=== PATIENT | female | born 1955 | race African-American/Black ===

== ENCOUNTER → 2016-07-30 | Outpatient (CLI) | payer OTHER ==
--- NOTE | 2016-07-30 15:37 | MAMMOGRAPHY REPORT ---
BILATERAL DIGITAL SCREENING MAMMOGRAM TOMOSYNTHESIS WITH CAD: 07/30/2016 CLINICAL HISTORY: Routine screening. Patient has no complaints. TECHNIQUE: Breast tomosynthesis in addition to standard 2D mammography was performed. Current study was also evaluated with a Computer Aided Detection (CAD) system. COMPARISON: Comparison is made to exams dated: 07/25/2015 mammogram, 07/13/2013 mammogram, 07/19/2014 m ammogram, 07/10/2012 mammogram, 07/02/2011 mammogram, and 06/26/2010 mammogram - [facility] nter. BREAST COMPOSITION: There are scattered areas of fibroglandular density in both breasts. FINDINGS: There are scattered stable benign-appearing round microcalcifications in the breasts. No suspicious mass, architectural distortion or cluster of microcalcifications is seen. IMPRESSION: ACR BI-RADS CATEGORY 2: BENIGN There is no mammographic evidence of malignancy. A 1 year screening mammogram is recommended. The p atient will receive written notification of the results. Approximately 10% of breast cancers are not detected with mammography. A negative mammographic repor t should not delay biopsy if a clinically suggestive mass is present. Annette Merlos M.D. ay/:07/30/2016 15:15:14 Recoating Machine Operator: Haley MOSS(Nile)(M), [facility] letter sent: Normal 1/2 BI-RADS Code: ACR BI-RADS Category 2: Benign
== END | disposition home or self-care (01) ==
LOC: C.MAMM 14:37
PROVIDERS: ATTEND Obstetrics & Gynecology
DX: Z12.31 Encounter for screening mammogram for malignant neoplasm of breast (principal)

== ENCOUNTER → 2017-05-24 | Outpatient (CLI) | payer OTHER | END | disposition home or self-care (01) | LOC: C.PAPS 16:02 | PROVIDERS: ATTEND Obstetrics & Gynecology | DX: Z01.419 Encounter for gynecological examination (general) (routine) without abnormal findings (principal) ==

== ENCOUNTER 2021-09-03 00:09 | Observation (INO) ==
[2021-09-03] MEDS ORDERED: SODIUM CHLORIDE 0.9% 250 ML IV PRN (00:28)
[2021-09-03] MEDS ORDERED: PANTOPRAZOLE BOLUS/DRIP 1 EA IV STA (00:28)
[2021-09-03] MEDS ORDERED: PANTOprazole 80 MG in DEXTROSE 5% 100 ML IV ONE (00:28)
[2021-09-03] MEDS ORDERED: SODIUM CHLORIDE 0.9% 500 ML IV SCH (00:30)
--- NOTE | 2021-09-03 00:34 | Emergency Department Note ---
History of Present Illness General Chief complaint: Vomiting Stated complaint: VOMITING BLOOD Time Seen by Provider: 09/03/21 00:19 Source: patient History of Present Illness Provider complaint: Vomiting of blood Onset (ago): hour(s) Location: abdomen Pain Consistency: + intermittent Quality: + other (Dark blood) Relieved By: + none Associated symptoms: + nausea/vomiting; no chest pain, no cough, no fever/chills, no shortness of breath or no weakness This is a 66-year-old female with no significant past medical history presenting with vomiting blood just prior to arrival. The patient states that she started vomiting this afternoon after eating some toast. She states that initially there was no blood in her vomitus but the last time she vomited she noticed a significant amount of blood that was dark red. She states that there were no coffee grounds. She did not look at her last emesis prior to that 1 but stated that it smelled funny. She denies any black or bloody stools. She has no abdominal pain, chest pain or shortness of breath. She does not feel weak or dizzy. She is not on any blood thinners. She did take ibuprofen and Tylenol for 3 days on Saturday through Saturday due to a dental issue. She did not use excessive doses and only used 400 mg of ibuprofen at a time. She otherwise denies any NSAID use. She does not drink alcohol or have a history of alcohol abuse. He denies any recent fever or illness or cough or cold symptoms. She has had no hematuria or urinary symptoms. She does state that prior to menopause she did have heavy periods. She has had no vaginal bleeding recently. She denies palpitations. Home Medications Medication Instructions Recorded Confirmed Type acetaminophen 500 mg tablet 1,000 mg PO DIRECTED PRN 09/03/21 09/03/21 History (Tylenol Extra Strength) ibuprofen 200 mg tablet 400 mg PO DIRECTED PRN 09/03/21 09/03/21 History naproxen sodium 220 mg tablet 220 mg PO DIRECTED PRN 09/03/21 09/03/21 History (Aleve) Allergies Allergy/AdvReac Type Severity Reaction Status Date / Time No Known Allergies Allergy Unknown Verified 09/03/21 01:03 Past Med/Surg History Medical History No pertinent past medical history Social History Smoking Status: Never smoker Preferred Language: Divehi Feels Safe at Home: Yes Review of Systems See HPI for pertinent positives & negatives. and A total of 10 systems reviewed and were otherwise negative Physical Exam Vital Signs Vital Signs - 24 hr 09/03/21 00:12 09/03/21 00:30 09/03/21 01:09 Temperature 36.2 C L Temperature Source Temporal Artery Scan Pulse Rate 127 H 115 H 98 H Pulse Rate [Apical] Pulse Rate from SpO2 Sensor 116 H Respiratory Rate 18 15 27 H Respiratory Effort / Characteristics Respiratory Depth Respiratory Pattern Blood Pressure 97/59 L Blood Pressure [Left Arm] Blood Pressure Mean 71 Blood Pressure Mean [Left Arm] Blood Pressure Position Sitting Blood Pressure Position [Left Arm] Pulse Oximetry 98 98 Oxygen Delivery Method Room Air Sepsis Recent Fever Within 48 Hours No Sepsis New/Unexplained Change in Mental Status N/A Sepsis Action Taken by Nursing No Action Required 09/03/21 01:25 Temperature Temperature Source Pulse Rate Pulse Rate [Apical] 88 Pulse Rate from SpO2 Sensor Respiratory Rate 18 Respiratory Effort / Characteristics Non-Labored Spontaneous Respiratory Depth Normal Respiratory Pattern Regular Blood Pressure Blood Pressure [Left Arm] 123/82 Blood Pressure Mean Blood Pressure Mean [Left Arm] 95 Blood Pressure Position Blood Pressure Position [Left Arm] Lying Pulse Oximetry 98 Oxygen Delivery Method Room Air Sepsis Recent Fever Within 48 Hours Sepsis New/Unexplained Change in Mental Status Sepsis Action Taken by Nursing Constitutional: Vital signs reviewed. Hypotensive. Eyes: Pupils are equal round reactive to light. Conjunctiva are noninjected. ENT: Pharynx is clear without erythema or exudate. Mucous membranes are moist. Neck supple without meningeal signs. Respiratory: Clear to auscultation bilaterally. Breath sounds are equal bilaterally. Cardiovascular: Tachycardic. Regular rhythm. GI: Soft, nondistended and nontender. Bowel sounds are present. Musculoskeletal: No peripheral edema. No lower extremity tenderness. Integumentary: No cyanosis. or jaundice. Neurological: The patient is awake and alert. No focal deficits. Psychiatric: Normal affect. Not anxious appearing. Course Administered Medications Pantoprazole Sodium 40 mg/ (Dextrose) 100 mls @ 20 mls/hr IV Q5H ZELDA Stop: 10/03/21 00:44 Last Admin: 09/03/21 01:35 Dose: 8 mg/hr, 20 mls/hr Documented by: [id number] Discontinued Medications Pantoprazole Sodium 80 mg/ (Dextrose) 120 mls @ 400 mls/hr IV NOW ONE Stop: 09/03/21 00:45 Last Admin: 09/03/21 01:15 Dose: 400 mls/hr Documented by: [id number] Ioversol (Optiray 320 100ml) 94 ml IV ONCE ONE Stop: 09/03/21 01:08 Last Admin: 09/03/21 01:08 Dose: 94 ml Documented by: [id number] Critical Care Time Critical Care Time: Yes Total Critical Care Time: 35 I have personally spent approximately 35 minutes of critical care time in the direct management of this patient. This includes bedside care, interpretation of diagnostic studies, and testing, discussion with consultants, patient, and family members, and other required patient management activities. These minutes are in excess of all separately billable procedures. Medical Decision Making Differential Diagnosis Acute GI bleed, gastritis, Bella-He tears, esophageal rupture, varices, anemia Medical Records Attestation: I reviewed the patient's medical records. I did perform a limited focused review of portions of the patient's old chart on the electronic medical record. The patient has had no recent pertinent visits to this hospital. Home Medications Current Medication List: was personally reviewed by me Additional Comments: No meds Laboratory Data Attestation: I reviewed the patient's lab results. Result diagrams: 09/03/21 00:35 09/03/21 00:35 Lab Results 09/03/21 09/03/21 09/03/21 Range/Units 00:35 00:35 00:35 WBC 11.35 H (4.8-10.8) K/uL RBC 4.62 (4.2-5.4) M/uL Hgb 13.0 (12.0-16.0) g/dL POC Hgb (12.0-16.0) g/dl Hct 39.0 (37-47) % POC Hct (37-47) % MCV 84.4 (80-100) fL MCH 28.1 (25-34) pg MCHC 33.3 (32-36) g/dL RDW Std Deviation 41.0 (36.4-46.3) fL RDW Coeff of Chely 13.4 (11.5-14.5) % Plt Count 221 (130-400) K/uL MPV 9.5 (7.4-10.4) fL Immature Gran % (Auto) 0.2 % Neut % (Auto) 89.0 % Lymph % (Auto) 6.5 % Porter % (Auto) 4.1 % Eos % (Auto) 0.1 % Baso % (Auto) 0.1 % Neut # (Auto) 10.11 H (1.4-6.5) K/uL Lymph # (Auto) 0.74 L (1.2-3.4) K/uL Porter # (Auto) 0.46 (0.11-0.59) K/uL Eos # (Auto) 0.01 (0-0.5) K/uL Baso # (Auto) 0.01 (0-0.2) K/uL Immature Gran # (Auto) 0.02 (0.00-0.02) K/uL PT 11.1 (9.0-12.0) Seconds INR 1.0 (0.9-1.1) APTT 24.6 (21.0-31.0) Seconds PTT Ratio 0.9 POC Sodium (135-144) mmol/L Sodium 138 (136-145) mmol/L POC Potassium (3.3-5.0) mmol/L Potassium 3.3 L (3.5-5.1) mmol/L POC Chloride (101-112) mmol/L Chloride 107 (98-107) mmol/L Carbon Dioxide 20 L (21-32) mmol/L POC Total CO2 (24-31) mmol/L Anion Gap 11 (3-11) POC Anion Gap (16-25) mmol/L POC BUN (7-18) mg/dl BUN 21 (6-23) mg/dl Creatinine 0.61 (0.6-1.2) mg/dl POC Creatinine (0.6-1.3) mg/dl Est Cr Clr Drug Dosing 96.4 ml/min Est GFR ( Amer) 108.0 ml/min Est GFR (Non-Af Amer) 93.1 ml/min BUN/Creatinine Ratio 34.4 H (10-20) Glucose 120 H (70-99(Fasting)) mg/dl POC Glucose (other) (70-99) mg/dl Calcium 8.9 (8.5-10.1) mg/dl POC Ioniz Calcium Conchis (1.12-1.32) mmol/l Total Bilirubin 0.6 (0.2-1.0) mg/dl AST 24 (13-39) U/L ALT 17 (7-52) U/L Alkaline Phosphatase 47 (34-104) U/L Total Protein 7.0 (6.0-8.3) gm/dl Albumin 4.1 (3.4-5.0) gm/dl Globulin 2.9 (2.5-4.0) gm/dl Albumin/Globulin Ratio 1.4 (0.9-2) Crossmatch 09/03/21 09/03/21 Range/Units 00:37 00:52 WBC (4.8-10.8) K/uL RBC (4.2-5.4) M/uL Hgb (12.0-16.0) g/dL POC Hgb 12.9 (12.0-16.0) g/dl Hct (37-47) % POC Hct 38 (37-47) % MCV (80-100) fL MCH (25-34) pg MCHC (32-36) g/dL RDW Std Deviation (36.4-46.3) fL RDW Coeff of Chely (11.5-14.5) % Plt Count (130-400) K/uL MPV (7.4-10.4) fL Immature Gran % (Auto) % Neut % (Auto) % Lymph % (Auto) % Porter % (Auto) % Eos % (Auto) % Baso % (Auto) % Neut # (Auto) (1.4-6.5) K/uL Lymph # (Auto) (1.2-3.4) K/uL Porter # (Auto) (0.11-0.59) K/uL Eos # (Auto) (0-0.5) K/uL Baso # (Auto) (0-0.2) K/uL Immature Gran # (Auto) (0.00-0.02) K/uL PT (9.0-12.0) Seconds INR (0.9-1.1) APTT (21.0-31.0) Seconds PTT Ratio POC Sodium 141 (135-144) mmol/L Sodium (136-145) mmol/L POC Potassium 3.3 (3.3-5.0) mmol/L Potassium (3.5-5.1) mmol/L POC Chloride 107 (101-112) mmol/L Chloride (98-107) mmol/L Carbon Dioxide (21-32) mmol/L POC Total CO2 20 L (24-31) mmol/L Anion Gap (3-11) POC Anion Gap 18.0 (16-25) mmol/L POC BUN 22 H (7-18) mg/dl BUN (6-23) mg/dl Creatinine (0.6-1.2) mg/dl POC Creatinine 0.6 (0.6-1.3) mg/dl Est Cr Clr Drug Dosing ml/min Est GFR ( Amer) ml/min Est GFR (Non-Af Amer) ml/min BUN/Creatinine Ratio (10-20) Glucose (70-99(Fasting)) mg/dl POC Glucose (other) 128 H (70-99) mg/dl Calcium (8.5-10.1) mg/dl POC Ioniz Calcium Conchis 1.13 (1.12-1.32) mmol/l Total Bilirubin (0.2-1.0) mg/dl AST (13-39) U/L ALT (7-52) U/L Alkaline Phosphatase (34-104) U/L Total Protein (6.0-8.3) gm/dl Albumin (3.4-5.0) gm/dl Globulin (2.5-4.0) gm/dl Albumin/Globulin Ratio (0.9-2) Crossmatch See Detail Imaging Data Radiologist's Impression: [facility] Patient: LILIYA ARANDA (Female) : 51 Status: ER Date: 09/03/21 01:11 Room #: History: two episodes of bright red vomiting tonight no appendix, denies abdominal pain Slices: [id number] Priors: Tech: Karuna Durham @ [phone] Exams: CT ABDOMEN & PELVIS With Contrast Contrast: IV Amt: 94ml of optiray 320 Accession Numbers: [id number] Referring Physician: REFERRED SELF Preliminary Findings Only See Final Report For Complete Findings CT ABDOMEN & PELVIS With Contrast: Small hiatus hernia. No evidence of bowel obstruction or bowel wall thickening. There is diverticulosis without evidence of diverticulitis. The rectum is distended with air and stool up to a diameter 7.4 cm. No abnormal fluid or regional inflammatory reaction. Asymmetric atrophy of the right rectus abdominis muscle. There is a focal 6.4 x 6.4 x 3.0 cm fluid collection within the right rectus sheath which may represent a chronic seroma. Radiologist: Ramo Goins MD Study ready at 01:15 and initial results transmitted at 01:31 ECG Data Attestation: I personally reviewed and interpreted this ECG as follows: Indication: + tachycardia Rate (beats per minute): 107 Rhythm: + sinus tachycardia ECG [place]: + Left axis deviation ECG ST segments: + Nonspecific ST abnormalities ECG Findings: no PVCs Comparison ECG Date: no prior available MDM Narrative I did evaluate the patient as noted above. The patient is presenting with 5 episodes of vomiting today without any other symptoms. She states that the last episode of emesis contained a large amount of blood which was dark red. She did bring in the basin in which she vomited and I did see it myself. There was a large amount of dark red blood. She is initially hypotensive and tachycardic on examination. IV access was established. I did treat her with a bolus of normal saline IV. I did order a type and cross. She was also started on a Protonix drip with an initial bolus IV. did place an order for continuous cardiac monitoring. The monitor showed sinus tachycardia at a rate of 112 bpm. I did order and personally review the patient's 12-lead EKG as described above. Sinus tachycardia without acute ischemia. I did order and review the patient's blood work as noted in the electronic medical record. CBC shows white count 11.3. Hemoglobin is 13. Platelet count is 221. Coags are unremarkable. Electrolytes demonstrate a potassium of 3.3 and a CO2 of 20 but are otherwise unremarkable. Glucose is 120. LFTs are normal. I did reassess the patient. She is feeling better. She has no longer tachycardic and her heart rate is 86. Her blood pressure came up to 123/82. I did order a CT of the abdomen and pelvis. I did review the images myself as well as the radiology report as described above. She has no evidence of acute process. She has diverticulosis without dive rticulitis. She has asymmetric atrophy of the right rectus abdominal muscle with a 6.4 x 3 cm fluid collection within the right rectus sheath which may represent a chronic seroma. I did discuss the test results with the patient. I did recommend hospitalization for further care and evaluation and repeat H&H. I did discuss case with the hospitalist and returned case inspector. Impression & Plan Acute upper gastrointestinal bleeding, Hypokalemia Discharge Plan Visit Data Chief Complaint: Vomiting Stated Complaint: VOMITING BLOOD ED Provider: Khris Roy Discharge Problem: Acute upper gastrointestinal bleeding, Hypokalemia Patient Disposition: Being Evaluated by Hospitalist Forms Stand Alone Forms: My [facility] Prescriptions Prescriptions: No Action acetaminophen [Tylenol Extra Strength] 500 mg Tablet 1,000 mg PO DIRECTED PRN (Reason: Pain) RF: 0 naproxen sodium [Aleve] 220 mg Tablet 220 mg PO DIRECTED PRN (Reason: Pain) RF: 0 ibuprofen 200 mg Tablet 400 mg PO DIRECTED PRN (Reason: Pain) RF: 0 Referrals Referrals: Yuriy Torres MD [Primary Care Provider] -
[2021-09-03 00:54] LABS: Basophils # (auto) 0.01 K/uL (0-0.2); Basophils % (auto) 0.1 %; Eosinophils # (auto) 0.01 K/uL (0-0.5); Eosinophils % (auto) 0.1 %; Immature Granulocytes # (auto) 0.02 K/uL (0.00-0.02); Immature Granulocytes % (auto) 0.2 %; Lymphocytes # (auto) 0.74 K/uL (1.2-3.4); Lymphocytes % (auto) 6.5 %; Mean Corpuscular Hemoglobin 28.1 pg (25-34); Mean Corpuscular Hgb Conc 33.3 g/dL (32-36); Mean Corpuscular Volume 84.4 fL (80-100); Mean Platelet Volume 9.5 fL (7.4-10.4); Monocytes # (auto) 0.46 K/uL (0.11-0.59); Monocytes % (auto) 4.1 %; Neutrophils # (auto) 10.11 K/uL (1.4-6.5); Platelet Count 221 K/uL (130-400); RDW Coefficient of Variation 13.4 % (11.5-14.5); Red Blood Count 4.62 M/uL (4.2-5.4); White Blood Count 11.35 K/uL (4.8-10.8)
[2021-09-03 01:05] LABS: iSTAT Creatinine 0.6 mg/dl (0.6-1.3); iSTAT Hemoglobin 12.9 g/dl (12.0-16.0); iSTAT Ionized Calcium 1.13 mmol/l (1.12-1.32); iSTAT Potassium 3.3 mmol/L (3.3-5.0)
[2021-09-03 01:07] LABS: Partial Thromboplastin Ratio 0.9; Partial Thromboplastin Time 24.6 Seconds (21.0-31.0); Prothrombin Time 11.1 Seconds (9.0-12.0)
[2021-09-03] MEDS ORDERED: OPTIRAY 320 100ml IV ONE (01:07)
[2021-09-03 01:12] LABS: Albumin Globulin Ratio 1.4 (0.9-2); Albumin Level 4.1 gm/dl (3.4-5.0); BUN Creatinine Ratio 34.4 (10-20); Bilirubin,Total 0.6 mg/dl (0.2-1.0); Calcium 8.9 mg/dl (8.5-10.1); Creatinine Clr Calc Pharmacy 96.4 ml/min; Est GFR (Non-African American) 93.1 ml/min; Globulin 2.9 gm/dl (2.5-4.0); Potassium 3.3 mmol/L (3.5-5.1)
[2021-09-03] MEDS: PANTOprazole 40 MG in DEXTROSE 5% 100 ML IV SCH ×5 (01:35→21:26)
--- NOTE | 2021-09-03 01:53 | History & Physical Report ---
Date of Service September 03, 2021 Assessment & Plan (1) Acute upper gastrointestinal bleeding: Plan: Likely secondary to NSAID gastritis Possible hemodynamic instability given initial low blood pressure at the ER Hypokalemia secondary to emesis Hyperglycemia rule out DM OBS Medical telemetry IV PPI Follow H&H, transfuse PRBC if hemoglobin less than 7 and or for symptomatic anemia GI consult if with recurrent GI bleed/progressive hemoglobin drop Replace potassium Check hemoglobin A1c DVT prophylaxis. SCDs Re: GI bleed Full code Patient requesting updates from providers. Mr. Papi Moses, contact #[phone]. Text document was generated using Windation recognition software. It may contain grammatical or spelling errors. Kindly contact undersigned for clarification of any documentation item in question. History of Present Illness Chief Complaint: GI bleed Primary Care Provider: Yuriy Torres MD History obtained from patient, family, and records. Medical history significant for colonic diverticulosis and polyps, hyperlipidemia as per records. Last confinement 2003 under Gynecology service for heavy vaginal bleeding status post TERRANCE-BSO. Last week, patient had a dental procedure where she was instructed to take NSAIDs [id number] for 3 days to get the head of pain. Yesterday afternoon, patient noted recurrent emesis episodes. Patient later noted blood clots from vomitus. Patient denies chest pain, S OB, abdominal pain. No melena, no unusual weight loss. No prior episodes. Initial SBP upon arrival at the ER 90s. IV PPI initiated at the ER. Medical History as above 2017 colonoscopy showed colonic polyp and diverticulosis Surgical History : TERRANCE/BSO, BTL, cholecystectomy, appendectomy, tonsillectomy Family History : Breast cancer, ovarian cancer, lung cancer, DM, COPD Personal/Social history : Non-smoker, no EtOH intake, hairstylist/businesswoman Allergies Allergy/AdvReac Type Severity Reaction Status Date / Time No Known Allergies Allergy Unknown Verified 09/03/21 01:03 Home Medications Medication Instructions Recorded Confirmed Type acetaminophen 500 mg tablet 1,000 mg PO DIRECTED PRN 09/03/21 09/03/21 History (Tylenol Extra Strength) ibuprofen 200 mg tablet 400 mg PO DIRECTED PRN 09/03/21 09/03/21 History naproxen sodium 220 mg tablet 220 mg PO DIRECTED PRN 09/03/21 09/03/21 History (Aleve) Past Med/Surg History Medical History No pertinent past medical history Social History Smoking Status: Never smoker Second Hand Exposure: No; Do You Dip or Chew Tobacco: No; Tobacco Cessation Education Requested by Patient: No Hx Alcohol Use: No Hx Substance Use: No Preferred Language: Grenadian Communication Ability: Effective Image Archivist Required: No Beliefs That Will Affect Care: None Current Living Situation: Spouse Other Information That Helps Us Care for You: No Feels Safe at Home: Yes Safety Concerns: Feels Safe At This Time Assistive Devices: Contacts and Glasses Review of Systems Review of Systems: As per HPI, all 10 systems reviewed, all other ROS negative Physical Exam Physical Exam: GENERAL: Comfortable, pleasant, no respiratory distress SKIN: Normal color, warm HEENT: [place] palpebral conjunctivae, no ptosis, dry buccal mucosa NECK : Supple, no tenderness CHEST : CTA, no tenderness HEART : RRR, no obvious murmurs ABDOMEN: Some distention, nontender EXTREMITIES : No LE swelling/tenderness, no other conspicuous deformities noted NEUROLOGIC : Coherent, no facial asymmetry, no other gross focality Results & Data Results & Data ([facility]) Vital Signs (Past 12 Hours) Vital Signs Temp Pulse Pulse Resp BP BP Pulse Ox 09/03/21 01:25 88 18 123/82 98 09/03/21 01:09 98 H 27 H 09/03/21 00:30 115 H 15 98 09/03/21 00:12 36.2 C L 127 H 18 97/[address] abdomen pelvis initial read: Small hiatus hernia. No evidence of bowel obstruction or bowel wall thickening. There is diverticulosiswithout evidence of diverticulitis. The rectumis distended with air and stool up to a diameter 7.4 cm. No abnormal fluid or regional inflammatoryreaction. Asymmetric atrophyof the right rectus abdominis muscle. There is a focal 6.4 x 6.4 x 3.0 cmfluid collection within the right r ectus sheath which mayrepresent a chronic seroma. EKG as per my interpretation: Rate 105, sinus tachycardia, LAD, LAFB, T wave abnormalities inferior and anterolateral leads
[2021-09-03] MEDS ORDERED: POTASSIUM CHLORIDE PWD 20 MEQ PACK PO STA (03:23)
[2021-09-03] MEDS ORDERED: LACTATED RINGER'S 1,000 ML IV ONE (03:30)
[2021-09-03] MEDS ORDERED: PROMETHAZINE HCL 12.5 MG in SODIUM CHLORIDE 0.9% 50 ML IV PRN (03:30)
[2021-09-03] MEDS ORDERED: MAGNESIUM SULFATE / D5W 1 GM/100 ML BAG IV STA (04:10)
[2021-09-03] MEDS ORDERED: traMADol HCL 50 MG TABLET PO PRN (04:40)
[2021-09-03] MEDS ORDERED: MoRPHine SULFATE 4 MG/ML 1 ML CARP\\VIAL IV PRN ×2 (04:40→16:44)
[2021-09-03] MEDS ORDERED: LORazepam 2 MG/1 ML VIAL IV PRN (04:40)
[2021-09-03] MEDS ORDERED: ACETAMINOPHEN 325 MG TAB PO PRN (04:40)
[2021-09-03 05:38] LABS: Hematocrit (blood only) 34.9 % (37-47); Hemoglobin 11.7 g/dL (12.0-16.0)
[2021-09-03] MEDS: LACTATED RINGER'S 1,000 ML IV SCH ×2 (06:13→21:26)
--- NOTE | 2021-09-03 08:54 | CT Scan Report ---
ABDOMEN AND PELVIS CT WITH IV CONTRAST CT DOSE: 439.37 mGy.cm HISTORY: Acute nausea with vomiting hematemasis eval for visceral injury TECHNIQUE: Multiaxial CT images of the abdomen and pelvis were performed following the IV administrat ion of 94 cc of Optiray, A dose lowering technique was utilized adhering to the principles of ALARA. COMPARISON STUDY: None. FINDINGS: The imaged inferior cardiac chambers are unremarkable. Mild atelectasis/scarring of the right middle lobe. There is no pneumatosis or pneumoperitoneum. The spleen, pancreas and adrenal glands are unrema rkable. Cholecystectomy with mild likely postsurgical intrahepatic and extrahepatic biliary ductal di lation. Indeterminate 11 mm hypodense lesion of the hepatic dome with additional 10 mm hypodense focu s of the inferior right hepatic lobe. Patency of the hepatic and portal veins. lobulations of the kidneys which enhance symmetrically. No hydronephrosis. Partial distention o f the urinary bladder with mild wall thickening. Uterus appears to be surgically absent. Atherosclero sis of the aorta without aneurysm. Unremarkable IVC. No adenopathy. Small hiatal hernia with mild distal esophageal wall thickening. Duodenal diverticulum. Moderate feca l retention distends the rectum. Colonic diverticulosis without acute diverticulitis. Prior appendect jenifer. Tiny fat filled periumbilical hernia. No ascites or mesenteric inflammation. There is marked mus thomas atrophy of the right rectus sheath with a right rectus 6.5 x 2.9 x 6.5 cm circumscribed ovoid rick er attenuating lesion. No acute fracture. Degenerative changes of the spine, pelvis and hips. IMPRESSION: 1. No bowel obstruction or bowel wall thickening. Prior appendectomy. 2. Colonic diverticulosis without acute diverticulitis. 3. Small hiatal hernia with mild distal esophageal wall thickening. 4. Moderate fecal retention. 5. Marked atrophy of the right rectus musculature with 6.5 cm fluid attenuating rectus sheath lesion/ collection. This is favored to be chronic. ACT 112: Negative or not required by law. The above report was generated using voice recognition software. It may contain grammatical, syntax o r spelling errors. Electronically signed by: Edward Lao M.D. 09/03/2021 8:52 AM
--- NOTE | 2021-09-03 09:36 | Electrocardiogram Report ---
Test Reason : Blood Pressure : / mmHG Vent. Rate : 107 BPM Atrial Rate : 107 BPM P-R Int : 140 ms QRS Dur : 082 ms QT Int : 334 ms P-R-T Axes : 035 -38 -04 degrees QTc Int : 445 ms Sinus tachycardia Left atrial enlargement Left anterior fascicular block Diffuse Minor Nonspecific T wave abnormality Abnormal ECG When compared with ECG of 09-AUG-2003 15:14, Vent. rate has increased BY 42 BPM Left anterior fascicular block now present Nonspecific T wave abnormality now evident in Lateral leads Confirmed by Giovanni Peacock ([id number]) on 09/03/2021 9:35:41 AM Referred By: REFERRED SELF Confirmed By:Giovanni Peacock
[2021-09-03] MEDS ORDERED: bisacodyL 10 MG SUPP PR PRN (09:44)
[2021-09-03 11:01] LABS: Hemoglobin 11.4 g/dL (12.0-16.0)
--- NOTE | 2021-09-03 12:48 | Hospitalist Progress Note ---
Date of Service September 03, 2021 Assessment & Plan (1) Acute upper gastrointestinal bleeding: Plan: Likely secondary to NSAID gastritis -remains stable -No further episodes of emesis since admission -continue protonix drip -continue NPO until evaluated by GI in event there is plan for EGD today. If no plan for EGD--> then will place patient on clears Hypokalemia secondary to emesis -repleted, repeat BMP tomorrow DVT ppx SCDs, ambulation. Admission and Anticipated Discharge Date Admission Date: September 03, 2021 Subjective Denies further emesis or nausea since admission Had 5 episodes of emesis at home. 5th was noted to be bloody, the other 4 unclear color Denies abdominal discomfort or other complaints Physical Exam Physical Exam: Pleasant, no acute distress, non toxic Respiratory: breathing comfortably on room air, no wheezing/rhonchi/rales Cardiovascular: regular rate and rhythm, no murmurs/rubs/gallops Gastrointestinal (Abdomen): +hyperactive, soft, non tender Musculoskeletal: no edema Neurologic: awake, spontaneously moving extremities Results & Data Results & Data ([facility]) Vital Signs (Past 12 Hours) Vital Signs Temp Pulse Pulse Pulse Resp BP BP 09/03/21 12:04 37.0 C 69 18 107/71 09/03/21 07:58 36.7 C 77 18 09/03/21 07:34 77 09/03/21 04:46 89 09/03/21 04:40 36.8 C 100 H 18 119/80 09/03/21 01:54 96 H 18 104/79 09/03/21 01:25 88 18 123/82 09/03/21 01:09 98 H 27 H 09/03/21 00:30 115 H 15 09/03/21 00:12 36.2 C L 127 H 18 97/59 L BP Pulse Ox Pulse Ox 09/03/21 12:04 98 09/03/21 07:58 98/63 L 99 09/03/21 07:34 09/03/21 04:46 09/03/21 04:40 97 97 09/03/21 01:54 98 09/03/21 01:25 98 09/03/21 01:09 09/03/21 00:30 98 09/03/21 00:12 98 Laboratory Results Short CBC 09/03/21 09/03/21 09/03/21 Range/Units 00:35 05:19 10:50 WBC 11.35 H (4.8-10.8) K/uL Hgb 13.0 11.7 L 11.4 L (12.0-16.0) g/dL Hct 39.0 34.9 L 34.0 L (37-47) % Plt Count 221 (130-400) K/uL BMP 09/03/21 00:35 Sodium 138 Potassium 3.3 L Chloride 107 Carbon Dioxide 20 L BUN 21 Creatinine 0.61 Glucose 120 H Calcium 8.9 Liver Function 09/03/21 Range/Units 00:35 Total Bilirubin 0.6 (0.2-1.0) mg/dl AST 24 (13-39) U/L ALT 17 (7-52) U/L Alkaline Phosphatase 47 (34-104) U/L Albumin 4.1 (3.4-5.0) gm/dl Medications Administered Current Inpatient Medications Acetaminophen (Acetaminophen 325 Mg Tab) 650 mg PO Q4H PRN PRN Reason: Pain or Fever Stop: 10/03/21 04:39 Bisacodyl (Bisacodyl 10 Mg Supp) 10 mg [place] DAILY PRN PRN Reason: Constipation Stop: 10/03/21 09:43 Last Admin: 09/03/21 11:18 Dose: 10 mg Documented by: Pantoprazole Sodium 40 mg/ (Dextrose) 100 mls @ 20 mls/hr IV Q5H [facility] Stop: 10/03/21 00:44 Last Admin: 09/03/21 11:16 Dose: 8 mg/hr, 20 mls/hr Documented by: Promethazine HCl 12.5 mg/ (Sodium Chloride) 50.5 mls @ 202 mls/hr IV Q6H PRN PRN Reason: Nausea And Vomiting Stop: 10/03/21 03:29 Lactated Ringer's (Lr) 1,000 mls @ 60 mls/hr IV .[id number] [facility] Stop: 10/03/21 06:09 Last Admin: 09/03/21 06:13 Dose: 60 mls/hr Documented by: Lorazepam (Lorazepam 2 Mg/1 Ml Vial) 0.5 mg IV Q4H PRN PRN Reason: Anxiety Stop: 10/03/21 04:39 Morphine Sulfate (Morphine Sulfate 4 Mg/Ml 1 Ml Carp\Vial) 4 mg IV Q4H PRN PRN Reason: Pain Stop: 09/17/21 04:39 Tramadol HCl (Tramadol Hcl 50 Mg Tablet) 25 - 50 mg PO Q4H PRN PRN Reason: Pain Stop: 10/03/21 04:39
--- NOTE | 2021-09-03 13:17 | Gastrointestinal Consultation ---
Date of Consultation September 03, 2021 Supervising Physician Co-Signing Physician Notes Hemodnyamically stable, no voert gi bleeding IV PPI EGD tomorrow pending endo schedules, npo after midnitie. History of Present Illness Reason for Consultation: ? ugib Requesting Physician: Dr. Lyons Attending Physician: Sukhwinder Lyons MD History of Present Illness 66 yo fm admitted thru the er with reports of hematemsis. Recent nsaid use. Feeling fine on the floor- no further reports of hematemesis or hematochezia. Denies etoh use. No prior knonw history of liver disease. No acute complaints voiced. pmhx: None Meds per [facility] All: NKDA Soc hx:No ethanol use Allergies Allergy/AdvReac Type Severity Reaction Status Date / Time No Known Allergies Allergy Unknown Verified 09/03/21 01:03 Home Medications Medication Instructions Recorded Confirmed Type acetaminophen 500 mg tablet 1,000 mg PO DIRECTED PRN 09/03/21 09/03/21 Hist ory (Tylenol Extra Strength) ibuprofen 200 mg tablet 400 mg PO DIRECTED PRN 09/03/21 09/03/21 History naproxen sodium 220 mg tablet 220 mg PO DIRECTED PRN 09/03/21 09/03/21 History (Aleve) Patient History Medical History No pertinent past medical history Social History Smoking Status: Never smoker Second Hand Exposure: No; Do You Dip or Chew Tobacco: No; Tobacco Cessation Education Requested by Patient: No Hx Alcohol Use: No Hx Substance Use: No Preferred Language: Albanian Communication Ability: Effective Flour Mixer Required: No Beliefs That Will Affect Care: None Current Living Situation: Spouse Other Information That Helps Us Care for You: No Feels Safe at Home: Yes Safety Concerns: Feels Safe At This Time Assistive Devices: Contacts and Glasses Review of Systems Review of Systems: All systems reviewed & are unremarkable except as noted in HPI & below Physical Exam Physical Exam: AA fm in nad Constitutional: WD/WN, vitals as above Respiratory: normal respiratory effort, lungs clear to auscultation Gastrointestinal (Abdomen): normal bowel sounds, soft, nontender, no hepatosplenomegaly Skin: no rashes, warm and dry Results & Data ([facility]) Vital Signs (Past 12 Hours) Vital Signs Temp Pulse Pulse Pulse Resp BP BP 09/03/21 12:04 37.0 C 69 18 107/71 09/03/21 07:58 36.7 C 77 18 98/63 L 09/03/21 07:34 77 09/03/21 04:46 89 09/03/21 04:40 36.8 C 100 H 18 119/80 09/03/21 01:54 96 H 18 104/79 09/03/21 01:25 88 18 123/82 09/03/21 01:09 98 H 27 H 09/03/21 00:30 115 H 15 Pulse Ox Pulse Ox 09/03/21 12:04 98 09/03/21 07:58 99 09/03/21 07:34 09/03/21 04:46 09/03/21 04:40 97 97 09/03/21 01:54 98 09/03/21 01:25 98 09/03/21 01:09 09/03/21 00:30 98 Laboratory Results Labs reviewed
[2021-09-04] MEDS: PANTOprazole 40 MG in DEXTROSE 5% 100 ML IV SCH ×2 (02:33→07:19)
[2021-09-04 08:08] LABS: Hematocrit (blood only) 30.8 % (37-47); Hemoglobin 10.2 g/dL (12.0-16.0); Mean Corpuscular Hemoglobin 28.3 pg (25-34); Mean Corpuscular Hgb Conc 33.1 g/dL (32-36); Mean Corpuscular Volume 85.3 fL (80-100); Mean Platelet Volume 9.7 fL (7.4-10.4); Platelet Count 180 K/uL (130-400); RDW Coefficient of Variation 13.7 % (11.5-14.5); RDW Standard Deviation 42.4 fL (36.4-46.3); Red Blood Count 3.61 M/uL (4.2-5.4); White Blood Count 4.67 K/uL (4.8-10.8)
[2021-09-04 08:24] LABS: BUN Creatinine Ratio 18.6 (10-20); Calcium 7.4 mg/dl (8.5-10.1); Creatinine Clr Calc Pharmacy 84.2 ml/min; Est GFR (African American) 103.2 ml/min; Magnesium 1.9 mg/dl (1.7-2.4); Potassium 3.7 mmol/L (3.5-5.1)
[2021-09-04 09:04] LABS: Estimated Average Glucose 120 mg/dl; Hemoglobin A1C 5.8 % (4.5-5.6)
--- NOTE | 2021-09-04 09:31 | Anesthesiology Consultation ---
Date of Service September 04, 2021 Assessment & Plan (1) Encounter for pre-operative examination: History Surgery Operation Date: 09/04/21 17:30 Proposed Procedures p Esophagogastroduodenoscopy Dr. Jesse Molina MD Height/Weight Height: 5 ft 6 in Weight: 84.5 kg Allergies Allergy/AdvReac Type Severity Reaction Status Date / Time No Known Allergies Allergy Unknown Verified 09/04/21 09:27 Medications Home Medications Medication Instructions Recorded Confirmed Last Taken acetaminophen 500 mg tablet 1,000 mg PO DIRECTED PRN 09/03/21 09/03/21 Unknown (Tylenol Extra Strength) ibuprofen 200 mg tablet 400 mg PO DIRECTED PRN 09/03/21 09/03/21 Unknown naproxen sodium 220 mg tablet 220 mg PO DIRECTED PRN 09/03/21 09/03/21 Unknown (Aleve) Active Medications Generic Name Dose Route Start Last Admin Trade Name Freq PRN Reason Stop Dose Admin Bisacodyl 10 mg 09/03/21 09:44 09/03/21 11:18 Bisacodyl 10 Mg Supp FL 10/03/21 09:43 10 mg DAILY PRN Administration Constipation Pantoprazole Sodium 40 mg/ 100 mls @ 20 mls/hr 09/03/21 00:45 09/04/21 07:19 Dextrose IV 10/03/21 00:44 8 mg/hr Q5H ZELDA 20 mls/hr Administration 8 MG/HR Lactated Ringer's 1,000 mls @ 60 mls/hr 09/03/21 06:10 09/03/21 21:26 Lr IV 10/03/21 06:09 60 mls/hr .[id number] ZELDA Administration Past Medical History Medical History (Updated 09/04/21 @ 09:31 by Sima Cano MD) Acute upper gastrointestinal bleeding Hypokalemia No pertinent past medical history Social History Smoking Status: Never smoker Do You Dip or Chew Tobacco: No Hx Alcohol Use: No Hx Substance Use: No substance use type: does not use Physical Exam Vital Signs Last Vital Signs Temp 36.7 C 09/04/21 07:40 Pulse 62 09/04/21 07:40 Resp 18 09/04/21 07:40 BP 110/72 09/04/21 07:40 Pulse Ox 97 09/04/21 07:40 Testing Laboratory Results 09/04/21 07:16 09/04/21 07:16 PT 11.1 Seconds (9.0-12.0) 09/03/21 00:35 INR 1.0 (0.9-1.1) 09/03/21 00:35 APTT 24.6 Seconds (21.0-31.0) 09/03/21 00:35 Hemoglobin A1c 5.8 % (4.5-5.6) H 09/03/21 00:35 Blood Type O Positive 09/03/21 00:37 Antibody Screen NEGATIVE 09/03/21 00:37 Electrocardiogram Date: 09/03/21 Sinus tachycardia Left atrial enlargement Left anterior fascicular block Diffuse Minor Nonspecific T wave abnormality Abnormal ECG When compared with ECG of 09-AUG-2003 15:14, Vent. rate has increased BY 42 BPM Left anterior fascicular block now present Nonspecific T wave abnormality now evident in Lateral leads Confirmed by Giovanni Peacock ([id number]) on 09/03/2021 9:35:41 AM
--- NOTE | 2021-09-04 09:32 | History & Physical Bridge Note ---
Date of Service September 04, 2021 History & Physical Bridge Note I have examined the patient, reviewed the History & Physical and in the interval since the performance of the History & Physical I have noted the following changes of clinical significance: no changes noted
--- NOTE | 2021-09-04 10:00 | GI REPORT ---
Patient Name: Ember Moses Procedure Date: 09/04/2021 9:32 AM Date of : 1955 Admit Type: Inpatient Age: 66 Gender: Female Attending MD: Chrissy Molina M.d. Procedure: Upper GI endoscopy Providers: Chrissy Molina M.d. Referring MD: Cuate Boo Indications: Hematemesis Medicines: See anesthesia record Complications: No immediate complications. Estimated Blood Loss: Estimated blood loss: none. Procedure: Pre-Anesthesia Assessment: - Patient identification and proposed procedure were verified prior to the procedure by the physician, the nurse and the anesthesiologist. The procedure was verified in the pre-procedure area. - Prior to the procedure, a History and Physical was performed, and patient medications, allergies and sensitivities were reviewed. The patient's tolerance of previous anesthesia was reviewed. - The risks and benefits of the procedure and the sedation options and risks were discussed with the patient. All questions were answered and informed consent was obtained. After obtaining informed consent, the endoscope was passed under direct vision. Throughout the procedure, the patient's blood pressure, pulse, and oxygen saturations were monitored continuously. The Endoscope was introduced through the mouth, and advanced to the second part of duodenum. The upper GI endoscopy was accomplished without difficulty. The patient tolerated the procedure well. Findings: The examined esophagus appeared normal. The Z-line appeared regular. The examined stomach appeared normal. Localized mild inflammation characterized by erythema was found in the gastric antrum. The duodenal bulb and second portion of the duodenum appeared normal. Impression: - Normal esophagus. - Z-line regular. - Normal stomach. - Antral gastritis. - Normal duodenal bulb and second portion of the duodenum. Recommendation: - Suspect mild gastritis from recent nsaid use. - Would take Carafate 1 gram qid for 4 weeks and PPI bid for 8 weeks. Alee Lyons M.d. 09/04/2021 9:59:45 AM This report has been signed electronically. Note Initiated On: 09/04/2021 9:32 AM Number of Addenda: 0 I attest to the content of the Intraoperative Record and orders documented therein, exceptions below {[id number]}
--- NOTE | 2021-09-04 10:00 | Communication Note ---
Date of Service: September 04, 2021 EGD completed No ulcers noted Mild gastritis PPI bid for 8 weeks, carafate 1 gram qid for 4 weeks. Ideally needs to avoid nsaid's but if she needs to take them would ensure she takes the above regimen. Advance diet as tolerated. GI will sign off.
[2021-09-04] MEDS ORDERED: PROPOFOL IV EMULSION 10 MG/ML 20 ML VIAL IV ONE (10:03)
[2021-09-04] MEDS ORDERED: LIDOCAINE 2% 2 ML VIAL/AMP(20MG/ML) INFIL ONE (10:03)
--- NOTE | 2021-09-04 11:12 | Anesthesiology Progress Note ---
Date of Service September 04, 2021 Anesthesia Post Procedure Vital Signs Vital Signs: Temp Pulse Pulse Pulse Resp BP Pulse Ox 09/04/21 10:32 56 L 20 139/75 98 09/04/21 10:17 62 18 125/73 98 09/04/21 10:02 79 18 120/72 98 09/04/21 09:28 36.4 C L 55 L 16 147/77 H 99 09/04/21 07:40 36.7 C 62 18 110/72 97 09/04/21 06:58 58 L 09/04/21 03:21 36.5 C 87 18 104/63 94 09/04/21 01:00 72 09/03/21 22:50 36.8 C 68 18 122/70 98 09/03/21 19:03 37.1 C 69 20 111/70 99 09/03/21 15:13 86 09/03/21 14:59 36.8 C 81 20 111/73 99 09/03/21 12:04 37.0 C 69 18 107/71 98 Transfer of Care Handoff Completed per policy Notes Mental Status: alert / awake / arousable and participated in evaluation Patient Amnestic to Procedure: Yes Nausea / Vomiting: adequately controlled Pain: adequately controlled Airway Patency, RR, SpO2: stable & adequate BP & HR: stable & adequate Hydration State: stable & adequate Anesthetic Complications: no major complications apparent and Pt Satisfied with anesthetic care
[2021-09-04] MEDS: SUCRALFATE 1 GM/10 ML UDC PO SCH ×3 (12:43→21:40)
--- NOTE | 2021-09-04 15:26 | Hospitalist Progress Note ---
Date of Service September 04, 2021 Assessment & Plan Plan: Hematemesis -EGD today shows mild inflammation and erythema in gastric antrum. No active bleeding -Hb down trended to 10.2 today -d/c protonix drip. Start carafate QID and PPI BID, plan for 8 week course -avoid NSAIDs Hypokalemia -repleted DVT ppx -SCDs, ambulation Likely d/c tomorrow Admission and Anticipated Discharge Date Admission Date: September 03, 2021 Subjective Had EGD today Tolerating lunch No further emesis since admission Physical Exam Physical Exam: Appears well. No acute distress. Eating lunch currently Respiratory: Breathing comfortably on room air, no wheezing/rhonchi/rales Cardiovascular: regular rate and rhythm, no murmurs/rubs/gallops Gastrointestinal (Abdomen): soft, non tender, non distended Musculoskeletal: no edema Neurologic: awake, alert, spontaneously moving extremities Results & Data Results & Data ([facility]) Vital Signs (Past 12 Hours) Vital Signs Temp Pulse Pulse Pulse Resp BP Pulse Ox 09/04/21 15:21 73 09/04/21 12:00 36.4 C L 57 L 18 117/77 99 09/04/21 10:32 56 L 20 139/75 98 09/04/21 10:17 62 18 125/73 98 09/04/21 10:02 79 18 120/72 98 09/04/21 09:28 36.4 C L 55 L 16 147/77 H 99 09/04/21 07:40 36.7 C 62 18 110/72 97 09/04/21 06:58 58 L Laboratory Results Short CBC 09/04/21 Range/Units 07:16 WBC 4.67 L (4.8-10.8) K/uL Hgb 10.2 L (12.0-16.0) g/dL Hct 30.8 L (37-47) % Plt Count 180 (130-400) K/uL BMP 09/04/21 07:16 Sodium 140 Potassium 3.7 Chloride 110 H Carbon Dioxide 27 BUN 13 Creatinine 0.70 Glucose 87 Calcium 7.4 L Medications Administered Current Inpatient Medications Acetaminophen (Acetaminophen 325 Mg Tab) 650 mg PO Q4H PRN PRN Reason: Pain or Fever Stop: 10/03/21 04:39 Bisacodyl (Bisacodyl 10 Mg Supp) 10 mg [place] DAILY PRN PRN Reason: Constipation Stop: 10/03/21 09:43 Last Admin: 09/03/21 11:18 Dose: 10 mg Documented by: Promethazine HCl 12.5 mg/ (Sodium Chloride) 50.5 mls @ 202 mls/hr IV Q6H PRN PRN Reason: Nausea And Vomiting Stop: 10/03/21 03:29 Lorazepam (Lorazepam 2 Mg/1 Ml Vial) 0.5 mg IV Q4H PRN PRN Reason: Anxiety Stop: 10/03/21 04:39 Morphine Sulfate (Morphine Sulfate 4 Mg/Ml 1 Ml Carp\Vial) 2 mg IV Q4H PRN PRN Reason: Pain Stop: 09/17/21 04:39 Pantoprazole Sodium (Pantoprazole 40 Mg Tab) 40 mg PO BID ZELDA Stop: 10/04/21 20:59 Sucralfate (Sucralfate 1 Gm/10 Ml Udc) 1 gm PO QID ZELDA Stop: 10/04/21 12:59 Last Admin: 09/04/21 12:43 Dose: 1 gm Documented by: Tramadol HCl (Tramadol Hcl 50 Mg Tablet) 25 - 50 mg PO Q4H PRN PRN Reason: Pain Stop: 10/03/21 04:39
[2021-09-04] MEDS: PANTOprazole 40 MG TAB PO SCH (21:40)
[2021-09-05 07:24] LABS: Hematocrit (blood only) 30.5 % (37-47); Hemoglobin 10.3 g/dL (12.0-16.0); Mean Corpuscular Hemoglobin 28.4 pg (25-34); Mean Corpuscular Hgb Conc 33.8 g/dL (32-36); Mean Platelet Volume 8.7 fL (7.4-10.4); Platelet Count 179 K/uL (130-400); RDW Coefficient of Variation 13.4 % (11.5-14.5); Red Blood Count 3.63 M/uL (4.2-5.4); White Blood Count 4.58 K/uL (4.8-10.8)
[2021-09-05] MEDS: PANTOprazole 40 MG TAB PO SCH (08:59)
[2021-09-05] MEDS: SUCRALFATE 1 GM/10 ML UDC PO SCH ×2 (08:59→11:42)
--- NOTE | 2021-09-05 09:35 | Discharge Summary ---
Date of Service September 05, 2021 Admission HPI Per Admitting Provider History obtained from patient, family, and records. Medical history significant for colonic diverticulosis and polyps, hyperlipidemia as per records. Last confinement 2003 under Gynecology service for heavy vaginal bleeding status post TERRANCE-BSO. Last week, patient had a dental procedure where she was instructed to take NSAIDs [id number] for 3 days to get the head of pain. Yesterday afternoon, patient noted recurrent emesis episodes. Patient later noted blood clots from vomitus. Patient denies chest pain, S OB, abdominal pain. No melena, no unusual weight loss. No prior episodes. Initial SBP upon arrival at the ER 90s. IV PPI initiated at the ER. Medical History as above 2017 colonoscopy showed colonic polyp and diverticulosis Surgical History : TERRANCE/BSO, BTL, cholecystectomy, appendectomy, tonsillectomy Family History : Breast cancer, ovarian cancer, lung cancer, DM, COPD Personal/Social history : Non-smoker, no EtOH intake, hairstylist/businesswoman Principal Diagnosis Upper GI bleed Acute blood loss anemia Mild Antral Gastritis, NSAIDs induced Discharge Exam No further emesis since admission Appears well. Finished breakfast Breathing comfortably on room air Regular rate and rhythm No leg swelling No abdominal pain or distension Discharge Data Allergies Allergy/AdvReac Type Severity Reaction Status Date / Time No Known Allergies Allergy Unknown Verified 09/04/21 09:27 Consultations 09/03/21 05:50 Consult Gastroenterology Routine Procedures Performed Operation Date: 09/04/21 17:30 Actual Procedures p Esophagogastroduodenoscopy - Chrissy Molina MD Ordered Studies 09/03/21 00:28 CT abd pelvis IV con only Urgent Hospital Course Ms Ember Moses is a 66 year old female with no significant medical history who recently underwent tooth extraction. Post procedure, she took 3 days of ibuprofen alternating with acetaminophen. She presented to the ER on 09/04 after 5 episodes of bloody emesis. On admisison her Hb was 13 and downtrended to 10.2-10.3. She did not have any further emesis while being in the hospital. She was placed on protonix drip and underwent EGD 09/04 which showed mild inflammation and erythema in gastric antrum. No active bleeding. Post procedure, she tolerated a regular diet and was discharged home in stable condition. She will be on carafate 1gm QID and PPI 40mg BID, plan for 8 weeks. She was advised to avoid NSAIDs in the future. She should follow up with her PCP in 2 weeks for post discharge care. Total Time Total Time Spent Total Time Spent (In Minutes): 35 Discharge Plan Discharge Items Patient Disposition: Home - Self-Care Reason For Visit: UGIB, LOW BP Discharge Diagnosis: UGI bleed Mild Acute gastritis from NSAID use Condition on Discharge: Good Activity: Resume your previous activity Non-emergency contact: Primary Care Provider Call non-emergency contact if: you have any medication questions and your symptoms worsen Follow-up/Referrals: Yuriy Torres MD [Primary Care Provider] - (Date & Time 09/11/2021 11:00 AM Provider Yuriy Torres III, MD Department [facility] ) Diet: Regular Addtl Attending Provider Instructions: You will be on Carafate 4 times a day and Protonix 2 times a day for 8 weeks total Avoid NSAIDs (ibuprofen, motrin, advil, etc) Tylenol as needed for pain is fine Pending Studies at Discharge: No Stand-Alone Forms: My [facility] [employer], Smoking Cessation Medications and DC Order Prescriptions: New sucralfate 100 mg/mL Suspension 1 g PO QID 60 Days Qty: 2400 RF: 0 pantoprazole 40 mg Tablet,Delayed Release (Dr/Ec) 40 mg PO BID 60 Days Qty: 60 RF: 1 Continued acetaminophen [Tylenol Extra Strength] 500 mg Tablet 1,000 mg PO DIRECTED PRN (Reason: Pain) RF: 0 Discontinued naproxen sodium [Aleve] 220 mg Tablet 220 mg PO DIRECTED PRN (Reason: Pain) RF: 0 ibuprofen 200 mg Tablet 400 mg PO DIRECTED PRN (Reason: Pain) RF: 0 Discharge Orders: Discharge Order (Routine); Ordered 09/05/21 Ordered By: Sukhwinder Lyons Admission Data Admit Date/Time: 09/03/21 03:27 Attending Provider: Sukhwinder Lyons Admit Provider: Cuate Boo Primary Care Provider: Yuriy Torres Other Providers: Cindi Pinedo ; Soni Hawkins ; Collin Hoskins ; Kath Fischer ; Amador Vernon ; Vishal Hodges ; Leonard Mancilla ; Barrie Eagle ; Ciera Foreman ; Katerina Pierre ; Leena Moss ; Chrissy Molina ; Millie Murguia Other Interventions: Discharge Summary Assessment (RN) Last Done: 09/04/21 10:32
== END 2021-09-05 16:15 | disposition home or self-care (01) ==
LOC: ED 00:09 → 2W 00:09